=== PATIENT | female | born 1980 | race Caucasian/White ===

== ENCOUNTER 2025-03-04 11:00 | Inpatient (IN) | payer OTHER ==
[~2025-03-04] VITALS: Ht 165.1 cm; Wt 64.4 kg
[2025-03-10] MEDS ORDERED: CEFTRIAXONE SODIUM 2,000 MG VIAL ONE (09:36)
[2025-03-10] MEDS ORDERED: METRONIDAZOLE/SODIUM CHLORIDE 500 MG/100 ML PIGGYBACK IV ONE (09:36)
[2025-03-10] MEDS ORDERED: LIDOCAINE HCL 1%/EPINEPHRINE 20ML VIAL IJ ONE ×2 (09:55→12:18)
[2025-03-10] MEDS ORDERED: BUPIVACAINE HCL/MPF 0.5% 30ML VIAL ONE (09:55)
[2025-03-10] MEDS ORDERED: OxyCODONE HCL 5 MG TABLET (ROXICODONE) PO PRN (12:00)
[2025-03-10] MEDS ORDERED: MORPHINE SULFATE 4 MG/ML CARTRIDGE IV PRN (12:00)
[2025-03-10] MEDS ORDERED: ONDANSETRON HCL 2 MG/ML VIAL IV PRN (12:00)
[2025-03-10] MEDS ORDERED: RINGERS SOLUTION,LACTATED 1,000 ML IV SCH (12:00)
[2025-03-10] MEDS ORDERED: HYOSCYAMINE SULFATE 0.125 MG TAB.SUBL SL SCH (13:00)
[2025-03-10] MEDS ORDERED: SIMETHICONE 125 MG CAPSULE PO SCH (13:00)
[2025-03-10] MEDS ORDERED: ACETAMINOPHEN 500 MG GEL..CAP PO SCH (14:00)
[2025-03-10] MEDS ORDERED: MORPHINE SULFATE 4 MG/ML VIAL IV ONE (14:35)
[2025-03-10 16:10] LABS: BASO % 0.2 % (0.1-1.2); EOS # 0.01 (0.04-0.54); EOS % 0.1 % (0.7-7.0); LYMPH # 1.63 (1.18-3.74); LYMPH % 11.0 % (19.3-53.1); MEAN PLATELET VOLUME 10.70 fl (9.4-12.4); MONO # 0.71 (0.24-0.82); MONO % 4.8 % (4.7-12.5); NEUT # 12.40 (1.56-6.13); NEUT % 83.4 % (34.0-71.1); RED CELL DISTRIBUTION WIDTH 12.3 % (11.6-14.4)
[2025-03-10] MEDS ORDERED: GABAPENTIN 300 MG CAPSULE PO ONE (16:45)
[2025-03-10] MEDS ORDERED: METOCLOPRAMIDE HCL 5 MG/ML VIAL ONE (16:45)
[2025-03-10] MEDS ORDERED: HYOSCYAMINE SULFATE 0.125 MG TAB.SUBL ONE (16:45)
[2025-03-10] MEDS ORDERED: SIMETHICONE 125 MG CAPSULE PO ONE (16:45)
[2025-03-10] MEDS ORDERED: CELECOXIB 200 MG CAPSULE PO ONE (16:46)
[2025-03-10] MEDS ORDERED: METOCLOPRAMIDE HCL 5 MG/ML VIAL IV SCH (17:00)
[2025-03-10] MEDS ORDERED: CELECOXIB 200 MG CAPSULE PO SCH (17:00)
[2025-03-10] MEDS ORDERED: GABAPENTIN 300 MG CAPSULE PO SCH (17:00)
[2025-03-10 18:30] VITALS: BP 108/69; O2SAT 99
[2025-03-10] MEDS ORDERED: FAMOTIDINE/PF 20 MG/2 ML VIAL IV PUSH SCH (21:00)
[2025-03-11 01:09] VITALS: BP 93/67; O2SAT 100
[2025-03-11 06:14] LABS: BASO % 0.4 % (0.1-1.2); EOS # 0.10 (0.04-0.54); EOS % 1.3 % (0.7-7.0); LYMPH # 2.12 (1.18-3.74); LYMPH % 27.8 % (19.3-53.1); MEAN PLATELET VOLUME 11.20 fl (9.4-12.4); MONO # 0.65 (0.24-0.82); MONO % 8.5 % (4.7-12.5); NEUT # 4.70 (1.56-6.13); NEUT % 61.7 % (34.0-71.1); RED CELL DISTRIBUTION WIDTH 12.4 % (11.6-14.4)
[2025-03-11 06:47] LABS: BUN CREA RATIO 7.0 (7.0-25.0); CREATININE SERUM 0.67 mg/dL (0.55-1.02); GFR 94.34; GLUCOSE FASTING 87.0 mg/dL (65-100); OSMOLALITY SERUM 282.0 MOSM/KG (275-295)
[2025-03-11 08:31] VITALS: BP 98/68; O2SAT 96
[2025-03-11] MEDS ORDERED: LACTULOSE 20 G/30 ML BLIST.PACK PO SCH (09:00)
[2025-03-11] MEDS ORDERED: LACTOBACILLUS ACIDOPHILUS 1 CAP CAP PO SCH (09:00)
[2025-03-11] MEDS ORDERED: MAGNESIUM SULFATE IN WATER 50 ML IV NR (10:35)
[2025-03-11] MEDS ORDERED: ENOXAPARIN SODIUM 40 MG/0.4 ML SYRINGE SUBCUTANEO SCH (17:00)
[2025-03-12] MEDS ORDERED: ENOXAPARIN SODIUM 40 MG/0.4 ML SYRINGE SUBCUTANEO SCH (09:00)
== END 2025-03-11 16:58 | disposition home or self-care (01) | DRG 331 ==
LOC: O/R 03-10 08:50 → SURH 03-10 10:00 → OB/GYN 03-10 13:42 → O/R 03-10 13:59 → SURG 03-10 15:58
PROVIDERS: ADMIT Colon & Rectal Surgery; ATTEND Colon & Rectal Surgery
PROC: 0DBH4ZZ Excision of Cecum, Percutaneous Endoscopic Approach (ICD-10-PCS; principal; 2025-03-10 10:00)
DX: C18.1 Malignant neoplasm of appendix (principal); N80.50 Endometriosis of intestine, unspecified